=== PATIENT | male | born 2000 | race Caucasian/White ===

== ENCOUNTER 2025-03-08 15:40 | Emergency (ER) | payer MEDICAID ==
[~2025-03-08] VITALS: Ht 177.8 cm; Wt 90.9 kg
[2025-03-08 15:45] VITALS: TEMP 98.2
[2025-03-08 17:33] VITALS: BP 140/98; PULSE 81; RESP 18; O2SAT 100
[2025-03-08] MEDS ORDERED: CEPH-558 PO (18:28)
[2025-03-08] MEDS: SILVER SULFADIAZINE 1% 25 GM CREAM TUBE TP ONE (18:44)
== END 2025-03-08 18:45 | disposition home or self-care (01) ==
LOC: EMS 15:42
DX: T23.071A Burn of unspecified degree of right wrist, initial encounter (principal); T31.0 Burns involving less than 10% of body surface; Z23 Encounter for immunization
CPT/HCPCS: 16000; 99283